=== PATIENT | male | born 1990 | race African-American/Black ===

== ENCOUNTER 2017-11-27 06:19 | Emergency (ER) | payer BC, OTHER ==
[~2017-11-27] VITALS: Ht 190.5 cm; Wt 83.2 kg
[~2017-11-27 06:19] MED LIST: FIORICET; OMEPRAZOLE
[2017-11-27] MEDS ORDERED: SODIUM CHLORIDE 0.9% 1,000 ML IV ONE (12:39)
[2017-11-27] MEDS ORDERED: KETOROLAC 30MG/ML VIAL IV STA (12:39)
[2017-11-27] MEDS ORDERED: ONDANSETRON HCL 4MG/2ML VIAL IV STA (12:39)
[2017-11-27] MEDS ORDERED: FAMOTIDINE 20MG/2ML VIAL IV STA (12:39)
[2017-11-27 13:09] LABS: HEMATOCRIT. 43.3 % (42.0-52.0); HEMOGLOBIN. 14.7 g/dL (14.0-18.0); MEAN CORPUSCULAR HEMOGLOBIN 29.5 pg (28.0-32.0); MEAN CORPUSCULAR VOLUME 87.2 fL (80.0-94.0); MEAN PLATELET VOLUME 8.2 fl (7.4-10.4); PLATELET 229 x1000/uL (130-400); RED BLOOD CELL COUNT 4.97 mill/uL (4.7-6.1); RED CELL DISTRIBUTION WIDTH 12.6 % (11.6-14.6)
[2017-11-27 13:14] LABS: INR 1.1; PROTHROMBIN TIME 11.8 sec (9.4-11.6)
[2017-11-27 13:20] LABS: CARBON DIOXIDE 32 mEq/L (21-32); CHLORIDE 103 mEq/L (98-107)
[2017-11-27 13:34] LABS: PLATELET ESTIMATE NORMAL
[2017-11-27 14:05] VITALS: BP 127/85
[2017-11-27 14:32] LABS: CLARITY URINE CLEAR (CLEAR); COLOR URINE YELLOW (YELLOW); KETONES URINE TRACE (NEGATIVE); LEUKOCYTE ESTERASE URINE TRACE (NEGATIVE); NITRITE URINE NEGATIVE (NEGATIVE); OCCULT BLOOD URINE NEGATIVE (NEGATIVE); PROTEIN URINE 1+ (NEGATIVE)
== END 2017-11-27 14:48 | disposition home or self-care (01) ==
LOC: ER 07:44
DX: R10.30 Lower abdominal pain, unspecified (principal); R11.2 Nausea with vomiting, unspecified; R19.7 Diarrhea, unspecified
CPT/HCPCS: 36415; 80053; 81001; 83690; 85025; 85610; 96361; 96374; 96375; 99284; J1885; J2405; J3490; J7030; Z7610

== ENCOUNTER 2017-12-16 13:02 | Emergency (ER) | payer OTHER ==
[~2017-12-16] VITALS: Ht 190.5 cm; Wt 82.0 kg
[2017-12-16] MEDS ORDERED: SODIUM CHLORIDE 0.9% 1,000 ML IV ONE (17:33)
[2017-12-16] MEDS ORDERED: ONDANSETRON HCL 4MG/2ML INJ IV STA (17:33)
[2017-12-16] MEDS ORDERED: KETOROLAC 30MG/ML VIAL IV STA (17:33)
[2017-12-16 18:02] LABS: BASOPHILS % 0.4 % (0.0-2.0); EOSINOPHILS % 2.7 % (0.0-5.0); HEMOGLOBIN. 14.6 g/dL (14.0-18.0); LYMPHOCYTES % 38.6 % (20.0-50.0); MEAN CORPUSCULAR HEMOGLOBIN 29.1 pg (28.0-32.0); MEAN CORPUSCULAR VOLUME 87.6 fL (80.0-94.0); MONOCYTES % 6.5 % (2.0-8.0); NEUTROPHILS % 51.8 % (40.0-76.0); PLATELET 265 x1000/uL (130-400); RED BLOOD CELL COUNT 5.02 mill/uL (4.7-6.1); RED CELL DISTRIBUTION WIDTH 12.6 % (11.6-14.6)
[2017-12-16 18:05] LABS: CLARITY URINE CLOUDY (CLEAR); COLOR URINE YELLOW (YELLOW); KETONES URINE 2+ (NEGATIVE); LEUKOCYTE ESTERASE URINE NEGATIVE (NEGATIVE); NITRITE URINE NEGATIVE (NEGATIVE); OCCULT BLOOD URINE NEGATIVE (NEGATIVE); PH URINE 5.5 (4.5-8.0); PROTEIN URINE NEGATIVE (NEGATIVE); SPECIFIC GRAVITY URINE 1.025 (1.005-1.030); UROBILINOGEN URINE 0.2 E.U./dL (0.2-1.0)
[2017-12-16 18:08] LABS: CHLORIDE 100 mEq/L (98-107)
[2017-12-16 18:11] LABS: INR 1.1; PROTHROMBIN TIME 11.3 sec (9.4-11.6)
[2017-12-16 20:30] VITALS: BP 127/72
== END 2017-12-16 20:50 | disposition home or self-care (01) ==
LOC: ER 13:17
DX: R10.32 Left lower quadrant pain (principal); R11.0 Nausea; Z98.890 Other specified postprocedural states
CPT/HCPCS: 36415; 74176; 80053; 81001; 83690; 85025; 85610; 96361; 96374; 96375; 99285; J1885; J2405; J7030

== ENCOUNTER 2021-04-11 22:26 | Emergency (ER) | payer SELFPAY ==
[~2021-04-11] VITALS: Ht 188 cm; Wt 87.0 kg
[2021-04-11 22:58] LABS: CLARITY URINE CLEAR (CLEAR); COLOR URINE YELLOW (YELLOW); KETONES URINE TRACE (NEGATIVE); LEUKOCYTE ESTERASE URINE NEGATIVE (NEGATIVE); NITRITE URINE NEGATIVE (NEGATIVE); OCCULT BLOOD URINE NEGATIVE (NEGATIVE); PROTEIN URINE TRACE (NEGATIVE); SPECIFIC GRAVITY URINE 1.029 (1.005-1.030); UROBILINOGEN URINE 0.2 E.U./dL (0.2-1.0)
[2021-04-11 23:40] LABS: BASOPHILS % 0.3 % (0.0-2.0); EOSINOPHILS % 1.6 % (0.0-5.0); HEMATOCRIT. 39.1 % (42.0-52.0); HEMOGLOBIN. 13.2 g/dL (14.0-18.0); LYMPHOCYTES % 31.3 % (20.0-50.0); MEAN CORPUSCULAR HEMOGLOBIN 29.7 pg (28.0-32.0); MEAN CORPUSCULAR VOLUME 87.9 fL (80.0-94.0); NEUTROPHILS % 59.8 % (40.0-76.0); PLATELET 247 x1000/uL (130-400); RED BLOOD CELL COUNT 4.45 mill/uL (4.7-6.1); RED CELL DISTRIBUTION WIDTH 12.7 % (11.6-14.6)
[2021-04-11 23:48] LABS: CHLORIDE 105 mEq/L (98-107)
[2021-04-12] MEDS ORDERED: IBUPROFEN 600MG TABLET PO SCH (01:00)
[2021-04-12] MEDS ORDERED: IBUP-2029 PO (01:06)
[2021-04-12 01:07] VITALS: BP 146/91
== END 2021-04-12 01:12 | disposition home or self-care (01) ==
LOC: ER 22:26
DX: R10.32 Left lower quadrant pain (principal); K57.90 Diverticulosis of intestine, part unspecified, without perforation or abscess without bleeding; Z98.890 Other specified postprocedural states
CPT/HCPCS: 36415; 74176; 80053; 81003; 85025; 99284

== ENCOUNTER 2024-04-03 17:31 | Emergency (ER) | payer SELFPAY ==
[~2024-04-03] VITALS: Ht 190.5 cm; Wt 88.5 kg
[~2024-04-03 17:31] MED LIST changes: +IBUP-2029 PO
[2024-04-03 17:41] VITALS: BP 141/95; PULSE 110; RESP 16; TEMP 98; O2SAT 98
[2024-04-03] MEDS ORDERED: ACETAMINOPHEN 325MG TABLET PO ONE (19:15)
[2024-04-03] MEDS ORDERED: TETANUS, DIPHTHERIA, PERTUSSIS VAC/PF 0.5ML (>10YR OLD) IM ONE (19:15)
[2024-04-03] MEDS ORDERED: IBUPROFEN 400MG TABLET PO ONE (19:15)
[2024-04-03] MEDS ORDERED: ACET-2708 MT (20:51)
[2024-04-03] MEDS ORDERED: IBUP-2028 MT (20:51)
== END 2024-04-03 20:55 | disposition home or self-care (01) ==
LOC: ER 17:31
DX: S60.512A Abrasion of left hand, initial encounter (principal); Z98.890 Other specified postprocedural states; W18.39XA Other fall on same level, initial encounter; Y93.89 Activity, other specified; Y92.89 Other specified places as the place of occurrence of the external cause; Y99.8 Other external cause status
CPT/HCPCS: 73090; 73110; 73130; 99284